=== PATIENT | male | born 1985 | race Caucasian/White ===

== ENCOUNTER 2023-08-20 20:39 | Observation (INO) | payer OTHER ==
[2023-08-20 20:51] VITALS: BMI 29.0
[2023-08-20] MEDS ORDERED: KETOROLAC TROMETHAMINE 15 MG/ML VIAL IVPUSH ONE (21:53)
[2023-08-20] MEDS ORDERED: FAMOTIDINE 20 MG/50 ML IVPB 20 MG/50 ML MG IVPB SCH (22:00)
[2023-08-20] MEDS ORDERED: KETOROLAC TROMETHAMINE 15 MG/ML VIAL ONE (22:03)
[2023-08-20] MEDS ORDERED: ALBUTEROL SO4 HFA INHALER IH ONE ×2 (22:10→23:12)
[2023-08-20] MEDS: SUCRALFATE 1 GM TABLET (FP) PO SCH (22:31)
[2023-08-20 22:40] LABS: BASO % 1.2 % (0-2.0); EOS % 3.3 % (0-4.5); HEMATOCRIT 27.1 % (35.4-49); HEMOGLOBIN 7.5 GM/dL (11.7-16.9); LYMPH % 33.9 % (8-40); MCHC 27.5 g/dl (32.0-35.9); MEAN CELL VOLUME 56.1 fl (80-96); MEAN PLT VOLUME 9.4 fl (7.5-11.1); MONO % 11.1 % (3.8-10.2); NEUT % 50.5 % (42.8-82.8); PLATELET COUNT 115 10^3/uL (134-434); RBC 4.83 M/mm3 (4.00-5.60); RDW 21.1 % (11.9-15.9); WHITE BLOOD COUNT 5.9 K/mm3 (4.0-10.0)
[2023-08-20 23:03] LABS: BLOOD UREA NITROGEN 6.6 mg/dL (7-18); CALCIUM 7.8 mg/dL (8.5-10.1)
[2023-08-20 23:04] LABS: ALBUMIN 3.6 g/dl (3.4-5.0)
[2023-08-20 23:06] LABS: CREATININE 0.6 mg/dL (0.55-1.3)
[2023-08-20 23:08] LABS: BILIRUBIN,TOTAL 0.5 mg/dL (0.2-1); TOT PROT 7.7 g/dl (6.4-8.2)
[2023-08-20 23:14] LABS: MCH 15.4 pg (25.7-33.7)
[2023-08-20] MEDS ORDERED: POTASSIUM CHLORIDE ORAL LIQUID 20 MEQ/15 ML PO ONE (23:20)
[2023-08-20] MEDS ORDERED: POTASSIUM CHLORIDE ORAL LIQUID 20 MEQ/15 ML ONE (23:32)
[2023-08-20 23:43] LABS: ANISOCYTOSIS 3+; MACROCYTOSIS 0; OVALOCYTE 1+; TARGET CELLS 1+
[2023-08-21] MEDS ORDERED: SODIUM CHLORIDE 1,000 ML IV STA (00:12)
[2023-08-21] MEDS ORDERED: MAGNESIUM SULF 50% (8.12 MEQ/2 ML-1 GM VIAL) IVPB ONE (00:19)
[2023-08-21] MEDS ORDERED: MAGNESIUM SULFATE IN WATER 2 GM/50 ML IVPB IVPB ONE (00:38)
[2023-08-21] MEDS ORDERED: KCL 10 MEQ IVPB 30 MEQ/300 ML INFUS.BAG IVPB ONE (02:08)
[2023-08-21] MEDS: KCL 10 MEQ IVPB 10 MEQ/100 ML INFUS.BAG IVPB SCH ×3 (02:47→06:10)
[2023-08-21] MEDS ORDERED: LORazepam 2 MG/ML SDV VIAL IVPUSH PRN ×2 (03:16→15:55)
[2023-08-21] MEDS ORDERED: chlordiazePOXIDE HCL 25 MG CAPSULE PO PRN (03:26)
[2023-08-21] MEDS: SODIUM CHLORIDE 1,000 ML IV SCH (06:11)
[2023-08-21] MEDS ORDERED: chlordiazePOXIDE HCL 25 MG CAPSULE ONE ×4 (06:20→23:30)
[2023-08-21] MEDS: chlordiazePOXIDE HCL 25 MG CAPSULE PO SCH ×4 (06:38→23:35)
[2023-08-21 07:22] LABS: POTASSIUM 3.8 mmol/L (3.5-5.1)
[2023-08-21 07:29] LABS: ALBUMIN 3.3 g/dl (3.4-5.0); BLOOD UREA NITROGEN 5.6 mg/dL (7-18); CALCIUM 7.1 mg/dL (8.5-10.1); MAGNESIUM 2.2 mg/dL (1.8-2.4)
[2023-08-21 07:32] LABS: CREATININE 0.6 mg/dL (0.55-1.3); PHOSPHOROUS 2.6 mg/dL (2.5-4.9)
[2023-08-21 07:34] LABS: BILIRUBIN,TOTAL 0.7 mg/dL (0.2-1)
[2023-08-21 07:35] LABS: IRON SERUM 8 ug/dL (50-175); TOTAL IRON BINDING CAPACITY 459 ug/dL (250-450)
[2023-08-21 08:14] LABS: PH,URINE 6.5 (5.0-8.0); URINE APPEARANCE CLEAR; URINE BILIRUBIN NEGATIVE (NEGATIVE); URINE COLOR YELLOW; URINE GLUCOSE (UA) NEGATIVE (NEGATIVE); URINE KETONE NEGATIVE (NEGATIVE); URINE LEUK ESTERASE NEGATIVE (NEGATIVE); URINE NITRITE NEGATIVE (NEGATIVE); URINE PROTEIN NEGATIVE (NEGATIVE); URINE UROBILINOGEN 0.2 mg/dL (0.2-1.0)
[2023-08-21 08:19] LABS: BASO % 0.5 % (0-2.0); EOS % 2.7 % (0-4.5); HEMATOCRIT 23.8 % (35.4-49); LYMPH % 39.5 % (8-40); MCH 15.6 pg (25.7-33.7); MCHC 27.5 g/dl (32.0-35.9); MEAN CELL VOLUME 56.7 fl (80-96); MEAN PLT VOLUME 9.6 fl (7.5-11.1); MONO % 15.3 % (3.8-10.2); RBC 4.21 M/mm3 (4.00-5.60); RDW 20.8 % (11.9-15.9); WHITE BLOOD COUNT 4.4 K/mm3 (4.0-10.0)
[2023-08-21 08:21] LABS: HEMOGLOBIN 6.6 GM/dL (11.7-16.9)
[2023-08-21] MEDS ORDERED: SUCRALFATE 1 GM TABLET (FP) ONE ×2 (09:16→22:34)
[2023-08-21] MEDS ORDERED: PANTOPRAZOLE SODIUM 40 MG VIAL ONE (09:16)
[2023-08-21] MEDS: SUCRALFATE 1 GM TABLET (FP) PO SCH ×2 (09:26→22:40)
[2023-08-21] MEDS: PANTOPRAZOLE SODIUM 40 MG VIAL IVPUSH SCH ×2 (09:26→22:40)
[2023-08-21 10:54] LABS: PLATELET COUNT 93 10^3/uL (134-434)
[2023-08-21] MEDS ORDERED: THIAMINE HCL 100 MG TABLET (FP) ONE (16:05)
[2023-08-21] MEDS ORDERED: FOLIC ACID 1 MG TABLET (FP) ONE (16:06)
[2023-08-21] MEDS ORDERED: MULTIVITAMINS (DAILY MVI) TABLET (FP) ONE (16:06)
[2023-08-21] MEDS ORDERED: THIAMINE HCL 200 MG/2 ML VIAL ONE (16:08)
[2023-08-21] MEDS: FOLIC ACID 1 MG TABLET (FP) PO SCH (16:19)
[2023-08-21] MEDS: THIAMINE HCL 200 MG/2 ML VIAL IVPB SCH (16:19)
[2023-08-21] MEDS: MULTIVITAMINS (DAILY MVI) TABLET (FP) PO SCH (16:19)
[2023-08-21] MEDS: THIAMINE HCL 100 MG TABLET (FP) PO SCH (16:19)
[2023-08-21 19:08] LABS: HEMATOCRIT 27.3 % (35.4-49); HEMOGLOBIN 8.1 GM/dL (11.7-16.9); MCHC 29.5 g/dl (32.0-35.9); MEAN CELL VOLUME 57.2 fl (80-96); MEAN PLT VOLUME 9.8 fl (7.5-11.1); PLATELET COUNT 107 10^3/uL (134-434); RBC 4.78 M/mm3 (4.00-5.60); WHITE BLOOD COUNT 6.3 K/mm3 (4.0-10.0)
[2023-08-21 19:09] LABS: MCH 16.8 pg (25.7-33.7)
[2023-08-21] MEDS ORDERED: PANTOPRAZOLE SODIUM 40 MG/100 ML BAG IVPB ONE (22:34)
[2023-08-22] MEDS: SODIUM CHLORIDE 1,000 ML IV SCH ×2 (03:07→19:59)
[2023-08-22] MEDS ORDERED: chlordiazePOXIDE HCL 25 MG CAPSULE ONE ×2 (05:06→10:27)
[2023-08-22] MEDS: chlordiazePOXIDE HCL 25 MG CAPSULE PO SCH ×4 (05:09→22:27)
[2023-08-22] MEDS ORDERED: THIAMINE HCL 200 MG/2 ML VIAL ONE (08:57)
[2023-08-22] MEDS ORDERED: THIAMINE HCL 100 MG TABLET (FP) ONE (08:57)
[2023-08-22] MEDS: SUCRALFATE 1 GM TABLET (FP) PO SCH ×2 (09:00→22:26)
[2023-08-22] MEDS: FOLIC ACID 1 MG TABLET (FP) PO SCH (09:00)
[2023-08-22] MEDS: MULTIVITAMINS (DAILY MVI) TABLET (FP) PO SCH (09:00)
[2023-08-22] MEDS: PANTOPRAZOLE SODIUM 40 MG VIAL IVPUSH SCH ×2 (09:00→22:25)
[2023-08-22] MEDS: THIAMINE HCL 100 MG TABLET (FP) PO SCH (09:00)
[2023-08-22] MEDS: THIAMINE HCL 200 MG/2 ML VIAL IVPB SCH (09:00)
[2023-08-22] MEDS ORDERED: D5-1/4NS+20 MEQ KCL - 20 MEQ/1,000 ML INFUS.BAG IV SCH (11:30)
[2023-08-22 11:52] LABS: HEMATOCRIT 27.8 % (35.4-49); MCHC 28.7 g/dl (32.0-35.9); MEAN CELL VOLUME 58.2 fl (80-96); MEAN PLT VOLUME 10.2 fl (7.5-11.1); PLATELET COUNT 115 10^3/uL (134-434); RBC 4.78 M/mm3 (4.00-5.60); RDW 22.6 % (11.9-15.9); WHITE BLOOD COUNT 5.5 K/mm3 (4.0-10.0)
[2023-08-22 11:57] LABS: MCH 16.7 pg (25.7-33.7)
[2023-08-22 12:02] LABS: INR 1.27 (0.83-1.09); PROTHROMBIN TIME (PATIENT) 14.7 SEC (9.7-13.0)
[2023-08-22 12:14] LABS: BLOOD UREA NITROGEN 6.6 mg/dL (7-18)
[2023-08-22 12:15] LABS: MAGNESIUM 1.8 mg/dL (1.8-2.4)
[2023-08-22 12:18] LABS: CREATININE 0.7 mg/dL (0.55-1.3)
[2023-08-22 12:21] LABS: CALCIUM 8.4 mg/dL (8.5-10.1)
[2023-08-22] MEDS ORDERED: FENTANYL CITRATE/PF 50 MCG/ML VIAL ONE (12:46)
[2023-08-22] MEDS ORDERED: BISACODYL 5 MG TABLET.DR (FP) PO ONE (17:00)
[2023-08-22] MEDS ORDERED: PEG 3350/NA SULF BICARB CL/KCL 4000 ML SOLN.RECON PO ONE (18:00)
[2023-08-23] MEDS ORDERED: chlordiazePOXIDE HCL 10 MG CAPSULE PO PRN
[2023-08-23] MEDS: SODIUM CHLORIDE 1,000 ML IV SCH (05:29)
[2023-08-23] MEDS: chlordiazePOXIDE HCL 10 MG CAPSULE PO SCH ×4 (05:39→22:18)
[2023-08-23] MEDS: PANTOPRAZOLE SODIUM 40 MG VIAL IVPUSH SCH ×2 (09:07→22:18)
[2023-08-23] MEDS: FOLIC ACID 1 MG TABLET (FP) PO SCH (09:07)
[2023-08-23] MEDS: MULTIVITAMINS (DAILY MVI) TABLET (FP) PO SCH (09:07)
[2023-08-23] MEDS: THIAMINE HCL 200 MG/2 ML VIAL IVPB SCH (09:08)
[2023-08-23] MEDS: THIAMINE HCL 100 MG TABLET (FP) PO SCH (09:12)
[2023-08-23 09:56] LABS: POTASSIUM 3.6 mmol/L (3.5-5.1)
[2023-08-23 09:58] LABS: CALCIUM 8.4 mg/dL (8.5-10.1)
[2023-08-23 09:59] LABS: ALBUMIN 3.5 g/dl (3.4-5.0); BLOOD UREA NITROGEN 5.6 mg/dL (7-18); MAGNESIUM 1.9 mg/dL (1.8-2.4)
[2023-08-23 10:02] LABS: CREATININE 0.7 mg/dL (0.55-1.3)
[2023-08-23 10:03] LABS: BILIRUBIN,TOTAL 1.5 mg/dL (0.2-1); TOT PROT 7.4 g/dl (6.4-8.2)
[2023-08-23 10:08] LABS: BASO % 1.2 % (0-2.0); EOS % 2.9 % (0-4.5); HEMOGLOBIN 8.1 GM/dL (11.7-16.9); LYMPH % 18.3 % (8-40); MCHC 27.9 g/dl (32.0-35.9); MEAN CELL VOLUME 58.6 fl (80-96); MEAN PLT VOLUME 9.9 fl (7.5-11.1); MONO % 13.4 % (3.8-10.2); NEUT % 64.2 % (42.8-82.8); PLATELET COUNT 101 10^3/uL (134-434); RBC 4.95 M/mm3 (4.00-5.60); RDW 23.2 % (11.9-15.9); RETICULOCYTES 2.11 % (0.5-1.5); WHITE BLOOD COUNT 6.4 K/mm3 (4.0-10.0)
[2023-08-23 10:10] LABS: MCH 16.3 pg (25.7-33.7)
[2023-08-23] MEDS: SUCRALFATE 1 GM TABLET (FP) PO SCH ×2 (11:49→22:18)
[2023-08-23] MEDS ORDERED: IRON SUCROSE INJECTION 200 MG in SODIUM CHLORIDE 90 ML IVPB ONE ×2 (14:00→17:03)
[2023-08-24 00:55] VITALS: RESP 18
[2023-08-24] MEDS ORDERED: chlordiazePOXIDE HCL 10 MG CAPSULE PO SCH (05:00)
[2023-08-24] MEDS ORDERED: IRON SUCROSE INJECTION 100 MG in SODIUM CHLORIDE 95 ML IVPB ONE (09:00)
[2023-08-24] MEDS: THIAMINE HCL 200 MG/2 ML VIAL IVPB SCH (09:34)
[2023-08-24] MEDS: MULTIVITAMINS (DAILY MVI) TABLET (FP) PO SCH (09:34)
[2023-08-24] MEDS: FOLIC ACID 1 MG TABLET (FP) PO SCH (09:34)
[2023-08-24] MEDS: SUCRALFATE 1 GM TABLET (FP) PO SCH (09:34)
[2023-08-24] MEDS: THIAMINE HCL 100 MG TABLET (FP) PO SCH (09:34)
[2023-08-24] MEDS: PANTOPRAZOLE SODIUM 40 MG VIAL IVPUSH SCH (09:34)
[2023-08-24 09:54] LABS: BASO % 1.1 % (0-2.0); EOS % 3.7 % (0-4.5); HEMATOCRIT 30.5 % (35.4-49); HEMOGLOBIN 8.6 GM/dL (11.7-16.9); LYMPH % 16.2 % (8-40); MCHC 28.2 g/dl (32.0-35.9); MEAN CELL VOLUME 59.2 fl (80-96); MEAN PLT VOLUME 10.2 fl (7.5-11.1); MONO % 9.5 % (3.8-10.2); NEUT % 69.5 % (42.8-82.8); PLATELET COUNT 63 10^3/uL (134-434); RBC 5.14 M/mm3 (4.00-5.60); RDW 22.9 % (11.9-15.9); WHITE BLOOD COUNT 6.4 K/mm3 (4.0-10.0)
[2023-08-24 10:07] LABS: MCH 16.7 pg (25.7-33.7)
[2023-08-24 10:12] LABS: POTASSIUM 3.4 mmol/L (3.5-5.1)
[2023-08-24 10:21] LABS: CALCIUM 8.4 mg/dL (8.5-10.1)
[2023-08-24 10:22] LABS: ALBUMIN 3.5 g/dl (3.4-5.0); BLOOD UREA NITROGEN 6.9 mg/dL (7-18); MAGNESIUM 1.9 mg/dL (1.8-2.4)
[2023-08-24 10:25] LABS: CREATININE 0.8 mg/dL (0.55-1.3); PHOSPHOROUS 3.1 mg/dL (2.5-4.9)
[2023-08-24 10:26] LABS: BILIRUBIN,TOTAL 0.9 mg/dL (0.2-1); TOT PROT 7.4 g/dl (6.4-8.2)
[2023-08-24 10:47] LABS: BILIRUBIN,DIRECT 0.3 mg/dL (0.0-0.2)
[2023-08-24 11:17] LABS: ANISOCYTOSIS 3+; MACROCYTOSIS 1+
[2023-08-24 14:44] VITALS: BP 152/91; PULSE 97; TEMP 98.3
[2023-08-25] MEDS ORDERED: chlordiazePOXIDE HCL 10 MG CAPSULE PO ONE (05:00)
== END 2023-08-24 18:37 | disposition home or self-care (01) ==
LOC: JER 20:39 → JERBED 08-21 00:41 → J4S 08-22 17:50
PROVIDERS: ADMIT Internal Medicine; ATTEND Internal Medicine
PROC: 3E033GC Introduction of Other Therapeutic Substance into Peripheral Vein, Percutaneous Approach (ICD-10-PCS; 2023-08-21)
PROC: 3E0337Z Introduction of Electrolytic and Water Balance Substance into Peripheral Vein, Percutaneous Approach (ICD-10-PCS; 2023-08-21)
PROC: 3E0333Z Introduction of Anti-inflammatory into Peripheral Vein, Percutaneous Approach (ICD-10-PCS; 2023-08-21)
PROC: 30233N1 Transfusion of Nonautologous Red Blood Cells into Peripheral Vein, Percutaneous Approach (ICD-10-PCS; 2023-08-21)
PROC: 0DJD8ZZ Inspection of Lower Intestinal Tract, Via Natural or Artificial Opening Endoscopic (ICD-10-PCS; 2023-08-22)
PROC: 0DB98ZX Excision of Duodenum, Via Natural or Artificial Opening Endoscopic, Diagnostic (ICD-10-PCS; principal; 2023-08-23 13:00)
DX: D50.9 Iron deficiency anemia, unspecified (principal); K42.0 Umbilical hernia with obstruction, without gangrene; F10.10 Alcohol abuse, uncomplicated; K59.00 Constipation, unspecified; E87.6 Hypokalemia; K92.1 Melena; Z72.0 Tobacco use; K64.4 Residual hemorrhoidal skin tags; K57.90 Diverticulosis of intestine, part unspecified, without perforation or abscess without bleeding
CPT/HCPCS: 36415; 36430; 71046-TC-FY; 74177-TC; 80048; 80053; 80307; 81003; 82248; 82607; 82728; 83540; 83550; 83605; 83690; 83735; 84100; 84443; 84484; 85025; 85027; 85045; 85610; 86850; 86900; 86901; 86922; 87086; 88305-TC; 93005; 93010; 99285-25; G0378; J1756; P9058; Q9967

== ENCOUNTER 2023-08-30 03:58 | Day surgery (SDC) | payer OTHER ==
[2023-08-30] MEDS ORDERED: HEPARIN NA (PORCINE) 5,000 UNITS/ML 1ML VIAL ONE ×2 (09:57→10:03)
[2023-08-30] MEDS ORDERED: BUPIVACAINE HCL/PF 0.25% (2.5MG/ML) 10 ML VIAL ONE (09:57)
[2023-08-30] MEDS ORDERED: DEXMEDETOMIDINE HCL 200 MCG/2 ML IVPB ONE (10:02)
[2023-08-30] MEDS ORDERED: ACETAMINOPHEN INJECTION 100 ML IVPB ONE (10:03)
[2023-08-30] MEDS ORDERED: ALBUTEROL SO4 HFA INHALER IH ONE (10:07)
[2023-08-30] MEDS ORDERED: SUGAMMADEX SODIUM 200 MG/2 ML VIAL ONE (10:07)
[2023-08-30] MEDS ORDERED: PROPOFOL 20 ML ONE (10:13)
[2023-08-30] MEDS ORDERED: KETAMINE HCL 200 MG/20 ML VIAL ONE (10:13)
[2023-08-30] MEDS ORDERED: ONDANSETRON 4 MG/2 ML VIAL ONE (10:14)
[2023-08-30] MEDS ORDERED: DEXAMETHASONE SOD PHOSPHATE 4 MG/1 ML VIAL ONE (10:14)
[2023-08-30] MEDS ORDERED: MIDAZOLAM HCL 2 MG/2 ML SINGLE DOSE VIAL ONE (10:15)
[2023-08-30] MEDS ORDERED: FENTANYL CITRATE/PF 50 MCG/ML VIAL ONE ×5 (10:16→14:05)
[2023-08-30] MEDS ORDERED: ROCURONIUM BROMIDE 50 MG/5 ML SYRINGE ONE ×2 (10:17→11:38)
[2023-08-30] MEDS ORDERED: ceFAZolin SODIUM 1 GM VIAL IVPB ONE (10:32)
[2023-08-30] MEDS ORDERED: ceFAZolin SODIUM 1 GM VIAL ONE (10:35)
[2023-08-30] MEDS ORDERED: BUPIVACAINE HCL/PF 0.25% (2.5MG/ML) 10 ML VIAL IJ ONE (10:50)
[2023-08-30] MEDS ORDERED: ONDANSETRON 4 MG/2 ML VIAL IVPUSH PRN (13:03)
[2023-08-30] MEDS ORDERED: LACTATED RINGERS SOLUTION 1,000 ML IV SCH (13:15)
[2023-08-30] MEDS ORDERED: MIDAZOLAM HCL 2 MG/2 ML SINGLE DOSE VIAL IVPUSH ONE (13:35)
[2023-08-30] MEDS ORDERED: KETOROLAC TROMETHAMINE 30 MG/1 ML VIAL IVPUSH ONE (13:36)
[2023-08-30] MEDS: LABETALOL HCL 5 MG/1 ML (100MG/20 ML VIAL) IVPUSH ONE ×2 (13:51→13:53)
[2023-08-30] MEDS ORDERED: LABETALOL HCL 5 MG/1 ML (100MG/20 ML VIAL) ONE (13:51)
[2023-08-30 15:17] VITALS: RESP 16
[2023-08-30 17:17] VITALS: BP 132/89; PULSE 106; TEMP 96.9
== END 2023-08-30 15:55 | disposition home or self-care (01) ==
LOC: JASU-SURG 03:58
PROVIDERS: ATTEND Surgery
PROC: 8E0W4CZ Robotic Assisted Procedure of Trunk Region, Percutaneous Endoscopic Approach (ICD-10-PCS; 2023-08-30)
PROC: 8E0W4CZ Robotic Assisted Procedure of Trunk Region, Percutaneous Endoscopic Approach (ICD-10-PCS; 2023-08-30)
PROC: 0WUF4JZ Supplement Abdominal Wall with Synthetic Substitute, Percutaneous Endoscopic Approach (ICD-10-PCS; principal; 2023-08-30 10:00)
DX: K42.9 Umbilical hernia without obstruction or gangrene (principal)
CPT/HCPCS: 49594; S2900; 88302-TC; 94760; C1781; J1644

== ENCOUNTER 2023-11-11 20:44 | Emergency (ER) | payer OTHER ==
[2023-11-11 20:56] VITALS: BP 138/65; PULSE 102; RESP 18; TEMP 97.5; BMI 25.8
[2023-11-11] MEDS ORDERED: LACTATED RINGERS SOLUTION 1000 ML INFUS.BAG IV ONE (21:17)
[2023-11-11 22:03] LABS: BASO % 0.5 % (0-2.0); HEMATOCRIT 38.3 % (35.4-49); HEMOGLOBIN 12.3 GM/dL (11.7-16.9); LYMPH % 31.2 % (8-40); MCH 22.2 pg (25.7-33.7); MEAN CELL VOLUME 69.2 fl (80-96); MEAN PLT VOLUME 10.3 fl (7.5-11.1); MONO % 11.5 % (3.8-10.2); NEUT % 55.8 % (42.8-82.8); PLATELET COUNT 111 10^3/uL (134-434); RBC 5.54 M/mm3 (4.00-5.60); RDW 20.7 % (11.9-15.9); WHITE BLOOD COUNT 8.9 K/mm3 (4.0-10.0)
[2023-11-11 22:04] LABS: POTASSIUM 3.3 mmol/L (3.5-5.1)
[2023-11-11 22:06] LABS: CALCIUM 8.7 mg/dL (8.5-10.1)
[2023-11-11] MEDS ORDERED: POTASSIUM CHLORIDE ORAL LIQUID 20 MEQ/15 ML PO ONE (22:06)
[2023-11-11 22:07] LABS: ALBUMIN 3.7 g/dl (3.4-5.0)
[2023-11-11] MEDS ORDERED: MAGNESIUM SULF 50% (8.12 MEQ/2 ML-1 GM VIAL) IVPB ONE ×2 (22:07→22:27)
[2023-11-11 22:09] LABS: CREATININE 1.2 mg/dL (0.55-1.3)
[2023-11-11 22:11] LABS: BILIRUBIN,TOTAL 0.4 mg/dL (0.2-1); TOT PROT 8.3 g/dl (6.4-8.2)
[2023-11-11] MEDS ORDERED: POTASSIUM CHLORIDE ORAL LIQUID 20 MEQ/15 ML ONE (22:39)
[2023-11-11] MEDS ORDERED: MAGNESIUM SULF 50% (8.12 MEQ/2 ML-1 GM VIAL) ONE (22:39)
[2023-11-11 23:28] LABS: ANISOCYTOSIS 1+; MACROCYTOSIS 0; PLATELET ESTIMATE NORMAL
== END 2023-11-12 00:42 | disposition home or self-care (01) ==
LOC: JER 20:44
PROC: 3E033GC Introduction of Other Therapeutic Substance into Peripheral Vein, Percutaneous Approach (ICD-10-PCS; principal; 2023-11-11)
DX: R10.32 Left lower quadrant pain (principal); F10.129 Alcohol abuse with intoxication, unspecified; R47.81 Slurred speech
CPT/HCPCS: 36415; 74177-TC; 80053; 83690; 83735; 85025; 99285-25

== ENCOUNTER 2023-11-17 17:37 | Emergency (ER) | payer OTHER ==
[2023-11-17 17:42] VITALS: RESP 18; BMI 33.2
[2023-11-17 18:39] LABS: BASO % 0.5 % (0-2.0); EOS % 1.5 % (0-4.5); HEMATOCRIT 40.5 % (35.4-49); HEMOGLOBIN 13.1 GM/dL (11.7-16.9); LYMPH % 31.7 % (8-40); MCH 22.4 pg (25.7-33.7); MCHC 32.4 g/dl (32.0-35.9); MEAN CELL VOLUME 69.3 fl (80-96); MONO % 14.5 % (3.8-10.2); NEUT % 51.8 % (42.8-82.8); RBC 5.84 M/mm3 (4.00-5.60); RDW 20.3 % (11.9-15.9); WHITE BLOOD COUNT 7.3 K/mm3 (4.0-10.0)
[2023-11-17 19:07] LABS: MEAN PLT VOLUME 9.4 fl (7.5-11.1); PLATELET COUNT 101 10^3/uL (134-434)
[2023-11-17 19:15] LABS: POTASSIUM 3.5 mmol/L (3.5-5.1)
[2023-11-17 19:17] LABS: CALCIUM 8.4 mg/dL (8.5-10.1)
[2023-11-17 19:18] LABS: BLOOD UREA NITROGEN 6.7 mg/dL (7-18); MAGNESIUM 2.1 mg/dL (1.8-2.4)
[2023-11-17 19:21] LABS: CREATININE 0.8 mg/dL (0.55-1.3)
[2023-11-17 19:22] LABS: BILIRUBIN,TOTAL 0.4 mg/dL (0.2-1)
[2023-11-17 19:23] LABS: TOT PROT 8.5 g/dl (6.4-8.2)
[2023-11-17] MEDS ORDERED: HALOPERIDOL LACTATE 5 MG/ML ONE (19:33)
[2023-11-17] MEDS: HALOPERIDOL LACTATE 5 MG/ML IM ONE (19:42)
[2023-11-18] MEDS: THIAMINE HCL 200 MG/2 ML VIAL IVPB ONE
[2023-11-18] MEDS: MAG HYDROX/AL HYDROX/SIMETH -MYLANTA- ORAL SUSPENSION PO ONE (00:08)
[2023-11-18] MEDS ORDERED: THIAMINE HCL 200 MG/2 ML VIAL ONE (00:09)
[2023-11-18] MEDS: FAMOTIDINE 20 MG/50 ML IVPB 20 MG/50 ML MG IVPB ONE (00:30)
[2023-11-18] MEDS ORDERED: FAMOTIDINE 20 MG/50 ML IVPB 20 MG/50 ML MG IVPB ONE (00:31)
[2023-11-18 02:58] VITALS: BP 104/78; PULSE 64; TEMP 97.3
[2023-11-18] MEDS ORDERED: METOCLOPRAMIDE HCL INJECTION 10 MG/2 ML VIAL ONE (06:02)
[2023-11-18] MEDS: FOLIC ACID 5 MG/1 ML SQ ONE (06:14)
[2023-11-18] MEDS: METOCLOPRAMIDE HCL INJECTION 10 MG/2 ML VIAL IM ONE (06:15)
[2023-11-18] MEDS: LACTATED RINGERS SOLUTION 1000 ML INFUS.BAG IV ONE (06:15)
[2023-11-18] MEDS: METOCLOPRAMIDE HCL INJECTION 10 MG/2 ML VIAL IVPB ONE (06:15)
[2023-11-18] MEDS: ONDANSETRON 4 MG/2 ML VIAL IVPUSH ONE (08:59)
== END 2023-11-18 07:50 | disposition home or self-care (01) ==
LOC: JER 17:37
PROC: 3E033GC Introduction of Other Therapeutic Substance into Peripheral Vein, Percutaneous Approach (ICD-10-PCS; principal; 2023-11-18)
PROC: 3E033GC Introduction of Other Therapeutic Substance into Peripheral Vein, Percutaneous Approach (ICD-10-PCS; 2023-11-18)
PROC: 3E0 Administration, Physiological Systems and Anatomical Regions, Introduction (ICD-10-PCS; 2023-11-18)
PROC: 3E023GC Introduction of Other Therapeutic Substance into Muscle, Percutaneous Approach (ICD-10-PCS; 2023-11-18)
PROC: 3E033GC Introduction of Other Therapeutic Substance into Peripheral Vein, Percutaneous Approach (ICD-10-PCS; 2023-11-18)
PROC: 3E0 Administration, Physiological Systems and Anatomical Regions, Introduction (ICD-10-PCS; 2023-11-18)
DX: R55 Syncope and collapse (principal); F10.929 Alcohol use, unspecified with intoxication, unspecified; R10.9 Unspecified abdominal pain; R11.0 Nausea; R51.9 Headache, unspecified; W19.XXXA Unspecified fall, initial encounter
CPT/HCPCS: 36415; 70450-TC; 72125-TC; 80053; 83735; 84100; 85025; 93005; 93010; 99285-25

== ENCOUNTER 2023-11-23 20:55 | Emergency (ER) | payer OTHER ==
[2023-11-23 21:07] VITALS: BP 144/91; PULSE 101; RESP 18; TEMP 98.2; BMI 28.2
[2023-11-23 22:09] LABS: BASO % 0.6 % (0-2.0); EOS % 1.9 % (0-4.5); LYMPH % 32.3 % (8-40); MCH 22.2 pg (25.7-33.7); MCHC 31.7 g/dl (32.0-35.9); MEAN CELL VOLUME 69.9 fl (80-96); MONO % 9.5 % (3.8-10.2); NEUT % 55.7 % (42.8-82.8); RBC 5.43 M/mm3 (4.00-5.60); RDW 19.7 % (11.9-15.9); WHITE BLOOD COUNT 7.1 K/mm3 (4.0-10.0)
[2023-11-23 22:19] LABS: INR 1.03 (0.83-1.09)
[2023-11-23 22:21] LABS: ACTIVATED PTT 37.4 SECONDS (25.2-36.5)
[2023-11-23 22:29] LABS: POTASSIUM 3.2 mmol/L (3.5-5.1)
[2023-11-23 22:31] LABS: CALCIUM 8.3 mg/dL (8.5-10.1)
[2023-11-23 22:32] LABS: ALBUMIN 3.7 g/dl (3.4-5.0); BLOOD UREA NITROGEN 10.8 mg/dL (7-18)
[2023-11-23 22:34] LABS: CREATININE 1.1 mg/dL (0.55-1.3)
[2023-11-23 22:36] LABS: BILIRUBIN,TOTAL 0.3 mg/dL (0.2-1); TOT PROT 8.2 g/dl (6.4-8.2)
[2023-11-23] MEDS ORDERED: FAMOTIDINE 20 MG/50 ML IVPB 20 MG/50 ML MG IVPB ONE (22:57)
[2023-11-23] MEDS: FAMOTIDINE 20 MG/50 ML IVPB 20 MG/50 ML MG IVPB ONE (23:14)
[2023-11-23] MEDS: LACTATED RINGERS SOLUTION 1000 ML INFUS.BAG IV ONE (23:14)
[2023-11-23] MEDS ORDERED: POTASSIUM CHLORIDE ORAL LIQUID 20 MEQ/15 ML ONE (23:15)
[2023-11-23] MEDS: POTASSIUM CHLORIDE ORAL LIQUID 20 MEQ/15 ML PO ONE (23:15)
[2023-11-23 23:30] LABS: MEAN PLT VOLUME 9.3 fl (7.5-11.1); PLATELET COUNT 97 10^3/uL (134-434)
[2023-11-24] MEDS ORDERED: KETOROLAC TROMETHAMINE 15 MG/ML VIAL ONE (00:37)
[2023-11-24] MEDS: KETOROLAC TROMETHAMINE 15 MG/ML VIAL IVPUSH ONE (00:38)
== END 2023-11-24 01:51 | disposition home or self-care (01) ==
LOC: JER 20:55
PROC: 3E033GC Introduction of Other Therapeutic Substance into Peripheral Vein, Percutaneous Approach (ICD-10-PCS; principal; 2023-11-23)
PROC: 3E0333Z Introduction of Anti-inflammatory into Peripheral Vein, Percutaneous Approach (ICD-10-PCS; 2023-11-23)
DX: M54.9 Dorsalgia, unspecified (principal); R10.11 Right upper quadrant pain
CPT/HCPCS: 36415; 76705-TC; 80053; 83690; 83735; 85025; 85610; 85730; 86850; 86900; 86901; 93005; 93010; 99285-25

== ENCOUNTER 2024-04-09 22:38 | Emergency (ER) | payer OTHER ==
[2024-04-09 22:49] VITALS: BMI 25.8
[2024-04-09] MEDS ORDERED: ALBUTEROL SO4 2.5/IPRATROPIUM 0.5 INH SOL 3 ML VIAL.NEB. NEB ONE (23:44)
[2024-04-09] MEDS: ALBUTEROL SO4 2.5/IPRATROPIUM 0.5 INH SOL 3 ML VIAL.NEB. NEB ONE (23:51)
[2024-04-10 00:05] VITALS: BP 119/79; PULSE 86; RESP 12
[2024-04-10 00:08] LABS: HEMATOCRIT 38.1 % (35.4-49); HEMOGLOBIN 12.3 GM/dL (11.7-16.9); MCH 22.6 pg (25.7-33.7); MCHC 32.2 g/dl (32.0-35.9); MEAN PLT VOLUME 11.8 fl (7.5-11.1); PLATELET COUNT 137 10^3/uL (134-434); RBC 5.45 M/mm3 (4.00-5.60); RDW 18.1 % (11.9-15.9); WHITE BLOOD COUNT 7.9 K/mm3 (4.0-10.0)
[2024-04-10 00:13] LABS: INR 1.04 (0.83-1.09)
[2024-04-10 00:15] LABS: ACTIVATED PTT 36.8 SECONDS (25.2-36.5)
[2024-04-10 00:33] LABS: POTASSIUM 3.5 mmol/L (3.5-5.1)
[2024-04-10 00:35] LABS: CALCIUM 8.5 mg/dL (8.5-10.1)
[2024-04-10 00:36] LABS: ALBUMIN 3.8 g/dl (3.4-5.0); BLOOD UREA NITROGEN 8.2 mg/dL (7-18)
[2024-04-10 00:39] LABS: CREATININE 0.9 mg/dL (0.55-1.3)
[2024-04-10 00:40] LABS: TOT PROT 8.2 g/dl (6.4-8.2)
[2024-04-10 00:41] LABS: BILIRUBIN,TOTAL 0.5 mg/dL (0.2-1)
[2024-04-10 00:43] VITALS: TEMP 98.4
[2024-04-10 00:53] LABS: LACTIC ACID 2.3 mmol/L (0.4-2.0)
[2024-04-10] MEDS: SODIUM CHLORIDE 0.9% 500 ML INFUS.BAG IV ONE (01:48)
== END 2024-04-10 03:54 | disposition home or self-care (01) ==
LOC: JER 22:38
PROC: 3E0F7GC Introduction of Other Therapeutic Substance into Respiratory Tract, Via Natural or Artificial Opening (ICD-10-PCS; principal; 2024-04-09)
DX: K57.90 Diverticulosis of intestine, part unspecified, without perforation or abscess without bleeding (principal); R06.02 Shortness of breath; R10.32 Left lower quadrant pain; F10.929 Alcohol use, unspecified with intoxication, unspecified; Y90.9 Presence of alcohol in blood, level not specified; R31.9 Hematuria, unspecified; K92.1 Melena; Z20.822 Contact with and (suspected) exposure to COVID-19
CPT/HCPCS: 0241U-QW; 36415; 70450-TC; 71045-TC-FY; 74177-TC; 80053; 82962; 83605; 85027; 85610; 85730; 93005; 93010; 99285-25

== ENCOUNTER 2024-05-29 16:36 | Emergency (ER) | payer OTHER ==
[2024-05-29 16:57] VITALS: BP 148/95; PULSE 108; RESP 18; TEMP 98.2; BMI 29.0
[2024-05-29] MEDS ORDERED: LIDOCAINE 4% PATCH TP ONE (17:51)
[2024-05-29] MEDS ORDERED: KETOROLAC TROMETHAMINE 30 MG/1 ML VIAL ONE (17:52)
[2024-05-29] MEDS ORDERED: METHOCARBAMOL 500 MG TABLET ONE (17:52)
[2024-05-29] MEDS: KETOROLAC TROMETHAMINE 30 MG/1 ML VIAL IM ONE (17:59)
[2024-05-29] MEDS: LIDOCAINE 4% PATCH TP ONE (17:59)
[2024-05-29] MEDS: METHOCARBAMOL 500 MG TABLET PO ONE (17:59)
== END 2024-05-29 19:16 | disposition home or self-care (01) ==
LOC: JERFT 16:36
PROC: 3E0133Z Introduction of Anti-inflammatory into Subcutaneous Tissue, Percutaneous Approach (ICD-10-PCS; principal; 2024-05-29)
DX: M54.41 Lumbago with sciatica, right side (principal); G89.29 Other chronic pain; R29.898 Other symptoms and signs involving the musculoskeletal system; R00.0 Tachycardia, unspecified; R20.2 Paresthesia of skin; X50.0XXA Overexertion from strenuous movement or load, initial encounter
CPT/HCPCS: 99284-25

== ENCOUNTER 2024-07-25 18:26 | Emergency (ER) | payer OTHER ==
[2024-07-25 18:48] VITALS: BP 135/79; PULSE 99; RESP 18; TEMP 98.3; BMI 24.2
[2024-07-25] MEDS ORDERED: LIDOCAINE 4% PATCH TP ONE (20:20)
[2024-07-25] MEDS ORDERED: ACETAMINOPHEN 325 MG TABLET (FP) ONE (20:20)
[2024-07-25] MEDS ORDERED: KETOROLAC TROMETHAMINE 30 MG/1 ML VIAL ONE (20:20)
[2024-07-25] MEDS: LIDOCAINE 5% TOPICAL PATCH TP ONE (20:25)
[2024-07-25] MEDS: KETOROLAC TROMETHAMINE 30 MG/1 ML VIAL IM ONE (20:25)
[2024-07-25] MEDS: ACETAMINOPHEN 325 MG TABLET (FP) PO ONE (20:26)
[2024-07-25] MEDS ORDERED: LIDOCAINE PATCH REMOVAL MC SCH (22:00)
== END 2024-07-25 20:28 | disposition home or self-care (01) ==
LOC: JERFT 18:26
PROC: 3E0233Z Introduction of Anti-inflammatory into Muscle, Percutaneous Approach (ICD-10-PCS; principal; 2024-07-25)
DX: M54.41 Lumbago with sciatica, right side (principal); G89.29 Other chronic pain
CPT/HCPCS: 99284-25

== ENCOUNTER 2024-11-24 09:11 | Emergency (ER) | payer OTHER ==
[2024-11-24 09:27] VITALS: BP 136/85; PULSE 84; RESP 22; TEMP 98; BMI 28.2
[2024-11-24] MEDS ORDERED: LIDOCAINE 4% PATCH TP ONE (09:59)
[2024-11-24] MEDS ORDERED: KETOROLAC TROMETHAMINE 15 MG/ML VIAL ONE (09:59)
[2024-11-24] MEDS: LIDOCAINE 4% PATCH TP ONE (10:07)
[2024-11-24] MEDS: KETOROLAC TROMETHAMINE 15 MG/ML VIAL IM ONE (10:07)
[2024-11-24] MEDS ORDERED: LIDOCAINE PATCH REMOVAL MC SCH (22:00)
== END 2024-11-24 12:30 | disposition left against medical advice (07) ==
LOC: JER 09:11
PROC: 3E0233Z Introduction of Anti-inflammatory into Muscle, Percutaneous Approach (ICD-10-PCS; principal; 2024-11-24)
DX: M54.50 Low back pain, unspecified (principal); G89.29 Other chronic pain; R20.2 Paresthesia of skin
CPT/HCPCS: 70450-TC; 72131-TC; 99285-25

== ENCOUNTER 2025-04-07 20:11 | Observation (INO) | payer OTHER ==
[2025-04-07 20:17] VITALS: BMI 26.5
[2025-04-07] MEDS ORDERED: KETOROLAC TROMETHAMINE 30 MG/1 ML VIAL ONE (21:00)
[2025-04-07] MEDS ORDERED: LIDOCAINE 5% TOPICAL PATCH ONE ×2 (21:01→21:30)
[2025-04-07] MEDS: KETOROLAC TROMETHAMINE 30 MG/1 ML VIAL IM ONE (21:35)
[2025-04-07] MEDS: LIDOCAINE 5% TOPICAL PATCH TP ONE (21:35)
[2025-04-07 23:45] LABS: ABSOLUTE IMMATURE GRANULOCYTES 0.02 x10^3/uL (0.0-0.031); BASOPHILS # 0.03 x10^3/uL (0.01-0.08)
[2025-04-07 23:47] LABS: MONOCYTE # 0.81 x10^3/uL (0.30-0.82)
[2025-04-07 23:58] LABS: EOSINOPHIL % 1.6 % (0.8-7.0); EOSINOPHILS # 0.14 x10^3/uL (0.04-0.54); HEMATOCRIT 35.2 % (40.1-51.0); HEMOGLOBIN 9.7 g/dL (13.7-17.5); MCHC 27.6 g/dl (32.3-36.5); MONOCYTE % 9.5 % (5.3-12.2); PLATELET COUNT 109 x10^3/uL (163-337); RDW 22.3 % (12.0-15.6)
[2025-04-08 00:09] LABS: CHLORIDE 111 mmol/L (98-107); SODIUM 140 mmol/L (136-145)
[2025-04-08 00:11] LABS: CALCIUM 8.3 mg/dL (8.5-10.1)
[2025-04-08 00:12] LABS: ALBUMIN 3.5 g/dl (3.4-5.0); BLOOD UREA NITROGEN 8.2 mg/dL (7-18); CO2 24 mmol/L (21-32); GLUCOSE,RANDOM 149 mg/dL (74-106)
[2025-04-08 00:15] LABS: CREATININE 0.8 mg/dL (0.55-1.3); SGOT/AST 79 U/L (15-37); SGPT/ALT 37 U/L (13-61)
[2025-04-08 00:16] LABS: BILIRUBIN,TOTAL 0.4 mg/dL (0.2-1)
[2025-04-08 00:17] LABS: TOT PROT 7.4 g/dl (6.4-8.2)
[2025-04-08 00:18] LABS: ALK PHOS 167 U/L (45-117)
[2025-04-08 00:31] LABS: ANION GAP 5 mmol/L (4-13)
[2025-04-08 01:01] LABS: HCV DIAGNOSTIC IN-HOUSE W/RFLX NON-REACTIVE (NONREACTIVE)
[2025-04-08 02:54] LABS: CALCIUM 8.3 mg/dL (8.5-10.1)
[2025-04-08 02:55] LABS: BLOOD UREA NITROGEN 8.1 mg/dL (7-18)
[2025-04-08] MEDS ORDERED: MORPHINE SULFATE 2 MG/ML SYRINGE ONE (02:56)
[2025-04-08 02:57] LABS: POTASSIUM 3.5 mmol/L (3.5-5.1)
[2025-04-08 02:58] LABS: CREATININE 0.8 mg/dL (0.55-1.3)
[2025-04-08] MEDS: morphine CARPU-JECT 4 MG/1 ML DISP.SYRIN IVPUSH ONE (03:00)
[2025-04-08] MEDS: MORPHINE SULFATE 2 MG/ML SYRINGE IVPUSH ONE (03:45)
[2025-04-08 04:47] VITALS: RESP 18
[2025-04-08] MEDS: oxyCODONE HCL 5 MG TABLET PO PRN (06:41)
[2025-04-08 08:43] LABS: HEMATOCRIT 37.6 % (40.1-51.0); HEMOGLOBIN 10.3 g/dL (13.7-17.5); MCHC 27.4 g/dl (32.3-36.5); MEAN CELL VOLUME 69.9 fl (79.0-92.2); PLATELET COUNT 137 x10^3/uL (163-337); RDW 21.7 % (12.0-15.6)
[2025-04-08 08:53] LABS: POTASSIUM 4.2 mmol/L (3.5-5.1)
[2025-04-08 09:02] LABS: ALBUMIN 3.7 g/dl (3.4-5.0); BLOOD UREA NITROGEN 7.4 mg/dL (7-18); CALCIUM 8.7 mg/dL (8.5-10.1)
[2025-04-08 09:05] LABS: CREATININE 0.7 mg/dL (0.55-1.3)
[2025-04-08 09:06] LABS: BILIRUBIN,TOTAL 0.4 mg/dL (0.2-1); TOT PROT 7.5 g/dl (6.4-8.2)
[2025-04-08] MEDS: ENOXAPARIN NA (PORCINE) 40 MG/0.4 ML DISP.SYRIN SQ SCH (10:34)
[2025-04-08] MEDS: PREGABALIN 75 MG CAPSULE PO SCH (10:34)
[2025-04-08] MEDS: LIDOCAINE 5% TOPICAL PATCH TP ONE (10:35)
[2025-04-08] MEDS: LIDOCAINE PATCH REMOVAL MC SCH (10:35)
[2025-04-08 12:05] VITALS: BP 140/91; PULSE 104; TEMP 98.2
[2025-04-08 20:32] LABS: HIV INTERPRETATION NEGATIVE (NEGATIVE)
[2025-04-08] MEDS ORDERED: LIDOCAINE PATCH REMOVAL MC ONE (22:45)
== END 2025-04-08 11:41 | disposition home or self-care (01) ==
LOC: JER 20:11 → JERBED 04-08 00:58 → J6S 04-08 03:40
PROVIDERS: ADMIT Student in an Organized Health Care Education/Training Program; ATTEND Internal Medicine
PROC: 3E023GC Introduction of Other Therapeutic Substance into Muscle, Percutaneous Approach (ICD-10-PCS; principal; 2025-04-08)
PROC: 3E0233Z Introduction of Anti-inflammatory into Muscle, Percutaneous Approach (ICD-10-PCS; 2025-04-08)
PROC: 3E033NZ Introduction of Analgesics, Hypnotics, Sedatives into Peripheral Vein, Percutaneous Approach (ICD-10-PCS; 2025-04-08)
DX: M54.41 Lumbago with sciatica, right side (principal); G89.29 Other chronic pain; D64.9 Anemia, unspecified; M19.90 Unspecified osteoarthritis, unspecified site; J45.909 Unspecified asthma, uncomplicated; K21.9 Gastro-esophageal reflux disease without esophagitis; R53.1 Weakness; R26.2 Difficulty in walking, not elsewhere classified
CPT/HCPCS: 36415; 72131-TC; 80048; 80053; 82728; 83540; 83550; 85025; 85027; 86803; 87389; 93005; 93010; 97116-GP; 97162-GP; 99285-25; G0378

== ENCOUNTER 2025-06-07 20:44 | Emergency (ER) | payer OTHER ==
[2025-06-07 20:50] VITALS: BP 142/97; PULSE 98; RESP 18; TEMP 98; BMI 28.2
[2025-06-07] MEDS ORDERED: KETOROLAC TROMETHAMINE 15 MG/ML VIAL ONE (22:15)
[2025-06-07] MEDS ORDERED: ACETAMINOPHEN 325 MG TABLET (FP) ONE (22:16)
[2025-06-07] MEDS ORDERED: METHOCARBAMOL 500 MG TABLET ONE (22:16)
[2025-06-07] MEDS: KETOROLAC TROMETHAMINE 15 MG/ML VIAL IM ONE (22:20)
[2025-06-07] MEDS ORDERED: KETOROLAC TROMETHAMINE 30 MG/1 ML VIAL ONE (22:21)
[2025-06-07] MEDS: ACETAMINOPHEN 500 MG TABLET (FP) PO ONE (22:26)
[2025-06-07] MEDS: METHOCARBAMOL 500 MG TABLET PO ONE (22:26)
[2025-06-07] MEDS: KETOROLAC TROMETHAMINE 30 MG/1 ML VIAL IM ONE (22:27)
== END 2025-06-07 23:06 | disposition home or self-care (01) ==
LOC: JER 20:44 → JERFT 20:44
PROC: 3E0233Z Introduction of Anti-inflammatory into Muscle, Percutaneous Approach (ICD-10-PCS; principal; 2025-06-07)
DX: M54.50 Low back pain, unspecified (principal); G89.29 Other chronic pain
CPT/HCPCS: 99284-25

== ENCOUNTER 2025-08-06 00:57 | Emergency (ER) | payer OTHER ==
[2025-08-06 01:07] VITALS: BP 145/86; PULSE 117; RESP 20; TEMP 98.1; BMI 25.0
[2025-08-06 02:50] LABS: RDW 18.9 % (12.0-15.6)
[2025-08-06 02:52] LABS: ABSOLUTE IMMATURE GRANULOCYTES 0.02 x10^3/uL (0.0-0.031); BASOPHILS # 0.04 x10^3/uL (0.01-0.08); EOSINOPHIL % 2.6 % (0.8-7.0); EOSINOPHILS # 0.22 x10^3/uL (0.04-0.54); IMMATURE PLATELET FRACTION # 33.80 x10^3/uL; MCHC 30.0 g/dl (32.3-36.5); MEAN CELL VOLUME 77.3 fl (79.0-92.2); MONOCYTE # 0.70 x10^3/uL (0.30-0.82); MONOCYTE % 8.2 % (5.3-12.2)
[2025-08-06 03:01] LABS: INR 1.06 (0.83-1.09); PROTHROMBIN TIME (PATIENT) 11.6 SEC (9.7-13.0)
[2025-08-06 03:04] LABS: ACTIVATED PTT 39.0 SECONDS (25.2-36.5)
[2025-08-06 03:18] LABS: GLUCOSE,RANDOM 133.0 mg/dL (74-106)
[2025-08-06 03:19] LABS: CO2 27.0 mmol/L (21-32); TOT PROT 8.2 g/dl (6.4-8.2)
[2025-08-06 03:21] LABS: ALK PHOS 154.0 U/L (40-150)
[2025-08-06 03:24] LABS: CREATININE 0.63 mg/dL (0.55-1.3); SGOT/AST 40.0 U/L (5-34); SGPT/ALT 39.0 U/L (0-55)
[2025-08-06] MEDS ORDERED: LIDOCAINE 5% TOPICAL PATCH ONE (04:48)
[2025-08-06] MEDS: LIDOCAINE 5% TOPICAL PATCH TP ONE (04:51)
[2025-08-06] MEDS ORDERED: LIDOCAINE PATCH REMOVAL MC SCH (22:00)
== END 2025-08-06 04:52 | disposition home or self-care (01) ==
LOC: JER 00:57
DX: K62.5 Hemorrhage of anus and rectum (principal); M54.50 Low back pain, unspecified; G89.29 Other chronic pain; R20.0 Anesthesia of skin; M79.18 Myalgia, other site
CPT/HCPCS: 36415; 80053; 85025; 85610; 85730; 86850; 86900; 86901; 99283-25